=== PATIENT | female | born 1980 | race American Indian/Alaskan Native ===

== ENCOUNTER 2019-02-03 19:14 | Emergency (ER) | payer OTHER ==
[2019-02-03 19:36] VITALS: BP 181/95
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
[2019-02-04] MEDS ORDERED: IBUPROFEN PO ONE (00:12)
[2019-02-04] MEDS ORDERED: TYLENOL PO ONE (00:12)
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
== END 2019-02-04 02:21 | disposition home or self-care (01) ==
LOC: ED 19:14
DX: S43.401A Unspecified sprain of right shoulder joint, initial encounter (principal); M54.2 Cervicalgia; Z79.899 Other long term (current) drug therapy; V89.2XXA Person injured in unspecified motor-vehicle accident, traffic, initial encounter; Y93.89 Activity, other specified; Y92.488 Other paved roadways as the place of occurrence of the external cause; Y99.8 Other external cause status
CPT/HCPCS: 72040; 99283

== ENCOUNTER 2021-10-09 21:25 | Emergency (ER) | payer OTHER ==
[2021-10-09 23:01] VITALS: BP 186/82
== END 2021-10-10 03:55 | disposition left against medical advice (07) ==
LOC: ED 21:25
DX: I10 Essential (primary) hypertension (principal); Z53.21 Procedure and treatment not carried out due to patient leaving prior to being seen by health care provider